=== PATIENT | female | born 1950 | race Caucasian/White ===

== ENCOUNTER 2016-08-19 09:03 | Day surgery (SDC) | payer MEDICARE, OTHER ==
[~2016-08-19 09:03] MED LIST: CEFAZOLIN 1 GM/D5W RTU 1 GM/50 ML RTUPB IV PRN; DEXAMETHASONE SOD PHOS INJ 10 MG/1 ML VIAL ONE; EPHEDRINE SULFATE INJ 50 MG/1 ML AMPULE ONE; FENTANYL CITRATE INJ/PF 100 MCG/2 ML AMPUL ONE; KETOROLAC TROMETHAMINE 60 MG/2 ML SDV ONE; LIDOCAINE 2% INJ-PF (20 MG/ML) 10 ML AMPUL ONE; MIDAZOLAM 2 MG/2 ML INJ ONE; ONDANSETRON HCL INJ/PF 4 MG/2 ML SDV ONE; PROPOFOL INJ 200 MG/20 ML VIAL IV ONE
[2016-08-19] MEDS ORDERED: NORMAL SALINE INJ/PF 0.9% 10 ML SDV ONE (09:17)
[2016-08-19] MEDS ORDERED: POLYMYXIN B SULFATE INJ 500000 UNIT VIAL ONE (09:17)
[2016-08-19] MEDS ORDERED: BACITRACIN INJ 50,000 UNIT VIAL ONE (09:17)
[2016-08-19] MEDS ORDERED: LIDOCAINE 2% INJ (20 MG/ML) 20 ML MDV ONE (09:20)
[2016-08-19] MEDS: BUPIVACAINE HCL 0.5 % INJ/PF 30 ML SDV ONE ×2 (10:52→12:15)
[2016-08-19] MEDS: DEXAMETHASONE SOD PHOSPHATE INJ 4 MG/1 ML VIAL ONE ×2 (12:14)
--- NOTE | 2016-08-19 13:39 | SURGICARE OPERATIVE REPORT E ---
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 POSTOPERATIVE DIAGNOSIS: Jerome deformity of the right calcaneus. PROCEDURE: Excision of Jerome deformity, right foot. DESCRIPTION OF PROCEDURE: On 08/19/2016, the patient was admitted to [facility] with a complaint of painful right foot and was taken to the operating room. Following the induction of IV sedation and regional local anesthesia, the patient's right foot was prepped and draped in the usual sterile manner. The tourniquet was placed on the proximal ankle malleoli. Esmarch was applied. The tourniquet was inflated to the level of 250 mmHg. Esmarch was removed. Sterile draping was completed and the following procedure was performed: Attention was directed to the lateral aspect of the patient's right calcaneus, where a 3 cm linear incision was placed just anterior to the Achilles tendon. It was deepened in the subcutaneous tissues and superficial fascia. All bleeding vessels were clamped, ligated, and Bovied as necessary for hemostasis. Dissection was carried to the deep fascial layer. The sural nerve was not identified in the wound and dissection was bluntly carried down to the periosteal structures of the calcaneus. An incision was made in the periosteum of the calcaneus. There was noted to be yellowish inflammatory fluid coming from the retrocalcaneal bursa. The incision was extended both dorsally and plantarly. The periosteal structures were freed from their osseus attachments and retracted for preservation, revealing the hypertrophied posterior-superior aspect of the right calcaneus. At that time, using an osteotome and mallet, the hypertrophied portion of the calcaneus was then removed, removing just enough bone to relieve the pressure on the Achilles tendon. The Achilles tendon was examined, no erosions or tears, were noted although there were palpable calcifications that could within the substance of the Achilles tendon. This was also slightly evident on the fluoroscopic study. Intraoperative x- rays were obtained and additional bone was removed as needed. Using the power rasp, all sharp osseus edges were rasped smooth. Final fluoroscopic views were obtained and it was felt that adequate reduction of the hypertrophied calcaneus had been obtained. The area was then flushed with copiously amounts of sterile antibiotic solution. This was inspected for any soft tissue or osseous debris with none being noted. The exposed medullary surfaces of the calcaneus were then covered with bone wax. At that time, the periosteal structures were then coapted and maintained with simple suture of 3-0 Vicryl. The subcutaneous tissue and superficial fascia was then coapted and maintained with a simple suture of 4-0 Vicryl. Skin incisions were then coapted and maintained with interrupted horizontal mattress suture of 4-0 nylon. At that time, postoperative Marcaine was injected throughout the wound and along the incision line. Then, 1 mL of Decadron 4 mg/mL was then injected in the posterior aspect of the calcaneus, the retrocalcaneal space. Sterile dressing consisting of Jimmy's silk, 4 x 4's, Sean, Kerlix, and Coban was applied and the tourniquet was deflated. Capillary filling time was noted to be instantaneous in all digits. At that time, a posterior splint was applied to the right extremity for immobilization. The patient tolerated the surgery and anesthesia well and was taken to the recovery room to be further monitored by the anesthesia department. DICTATING PHYSICIAN: GROVER VASQUEZ DPM [id number] PHY#: [id number] ID: [id number] JOB#: [id number] ACCT: [id number] cc:GROVER VASQUEZ DPM > MTDD
== END 2016-08-19 13:23 | disposition home or self-care (01) ==
LOC: SC 09:03
PROVIDERS: ATTEND Preventive Medicine Undersea and Hyperbaric Medicine
PROC: 0QBL0ZZ Excision of Right Tarsal, Open Approach (ICD-10-PCS; principal; 2016-08-19 10:00)
DX: M77.31 Calcaneal spur, right foot (principal); E78.00 Pure hypercholesterolemia, unspecified; E03.9 Hypothyroidism, unspecified; L40.9 Psoriasis, unspecified; M19.90 Unspecified osteoarthritis, unspecified site; Z79.1 Long term (current) use of non-steroidal anti-inflammatories (NSAID); Z79.899 Other long term (current) drug therapy; Z88.8 Allergy status to other drugs, medicaments and biological substances
CPT/HCPCS: 73650; 28119; J2250; J3490 ×5; J0690; J1100 ×2; J1885; J3010; J2405; J2704; 01480

== ENCOUNTER → 2017-06-18 | Outpatient (CLI) | payer MEDICARE, OTHER ==
--- NOTE | 2017-06-18 16:21 | RADIOLOGY REPORT (SQ) ---
EXAM DESCRIPTION: NM 3 PHASE BONE SCAN COMPLETED DATE/TIME: 06/18/2017 3:53 pm REASON FOR STUDY: LT KNEE PAIN (M25.562) M25.562 PAIN IN LEFT KNEE COMPARISON: No available imaging studies for comparison. RADIONUCLIDE AND DOSE: 21.3 millicuries Tc99m MDP. The route of agent administration: Intravenous. ADDITIONAL DRUGS AND DOSES: None. TECHNIQUE: Following injection of the radiopharmaceutical, serial blood flow images acquired. Equil ibrium blood pool images then acquired. Routine delayed images at 3 hour acquired of the areas of cl inical concern with additional focused images as needed. AREA OF INTEREST: Left knee LIMITATIONS: None. FINDINGS: VASCULAR FLOW IMAGES: No asymmetry or focal areas of hyperemia. BLOOD POOL IMAGES: Increased uptake medial left knee adjacent to prosthesis tibial component. BONES: Increased uptake medial left knee. KIDNEYS: Kidneys not imaged. OTHER: No other significant finding. IMPRESSION: Inconclusive. There is increased uptake in the left knee on blood pool and delayed imag es, but not on flow images. Cannot exclude loosening. RECOMMENDATION: If there is clinical suspicion of infection, consider tagged white cell and sulfur c olloid study performed on the same day. COMMENT: Quality measure 147: No available prior imaging studies for comparison TECHNICAL DOCUMENTATION: JOB ID: [id number] [employer]- All Rights Reserved
== END ==
LOC: RAD 11:00
PROVIDERS: ATTEND Orthopaedic Surgery Sports Medicine
DX: M25.562 Pain in left knee (principal)
CPT/HCPCS: 78315; A9561; Q9969